=== PATIENT | male | born 1995 | race Two or more races ===

== ENCOUNTER → 2021-09-26 | Outpatient (REF) | payer OTHER ==
[2021-09-26 14:42] LABS: SEMEN APPEARANCE OPAQUE (OPAQUE); SEMEN VISCOSITY LIQUID (LIQUID); SEMEN VOLUME 2.7 ml (2.0-5.0); SPERM CONCENTRATION 27.4 M/ml (>=15.0); WBC CONCENTRATION >1 M/ml (<=1 M/ml)
== END ==
LOC: M LAB REF 14:38
PROVIDERS: ATTEND Obstetrics & Gynecology
DX: N46.8 Other male infertility (principal)

== ENCOUNTER → 2022-02-20 | Outpatient (CLI) | payer OTHER ==
[~2022-02-20] MED LIST: PROHANCE 279.3MG/ML 15ML VIAL ONE
== END ==
LOC: M PLAIMG 09:22
PROVIDERS: ATTEND Internal Medicine
DX: M54.9 Dorsalgia, unspecified (principal)
CPT/HCPCS: 72158; A9576

== ENCOUNTER 2022-08-13 18:46 | Emergency (ER) | payer OTHER ==
[~2022-08-13] VITALS: Ht 170.2 cm; Wt 71.1 kg
[2022-08-13 18:47] VITALS: BP 139/80
[2022-08-13] MEDS ORDERED: KETOROLAC 60MG 2ML VIAL IM ONE (20:00)
[2022-08-13] MEDS ORDERED: diazePAM 10 MG TAB PO ONE (20:00)
[2022-08-13] MEDS ORDERED: SOMA350T PO (20:11)
[2022-08-13] MEDS ORDERED: IBUP-1022 PO (20:13)
== END 2022-08-13 20:25 | disposition home or self-care (01) ==
LOC: M ED 18:46
DX: M54.50 Low back pain, unspecified (principal); G89.29 Other chronic pain
CPT/HCPCS: 96372; 99282; J1885